=== PATIENT | female | born 2000 | race Caucasian/White ===

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

== ENCOUNTER 2024-09-12 09:49 | Emergency (ER) | payer MEDICAID, OTHER ==
[2024-09-12] MEDS: HYDROmorphone 1 MG/ML Syringe SUBCUT ONE (10:16)
[2024-09-12] MEDS: Ondansetron 4 MG Tab.DIS PO ONE (12:08)
== END 2024-09-12 12:31 | disposition home or self-care (01) ==
LOC: VM.ED 09:49
DX: S22.31XA Fracture of one rib, right side, initial encounter for closed fracture (principal); Z79.899 Other long term (current) drug therapy; Z91.09 Other allergy status, other than to drugs and biological substances; X58.XXXA Exposure to other specified factors, initial encounter
CPT/HCPCS: 71101; 96372; 99283; A9270; J1171